=== PATIENT | male | born 1990 | race African-American/Black ===

== ENCOUNTER 2021-02-09 22:05 | Emergency (ER) | payer OTHER ==
[2021-02-09 22:22] VITALS: BP 136/95; PULSE 87; TEMP 99; BMI 30.2
[2021-02-09] MEDS ORDERED: AMOX TR/POT CLAV 500MG/125MG TABLETS (FP) PO ONE (22:38)
[2021-02-09] MEDS ORDERED: DIPHTH,PERTUSS(ACELL),TET 0.5 ML DISP.SYRIN IM ONE ×2 (22:39→22:41)
[2021-02-09] MEDS ORDERED: AMOX TR/POT CLAV 500MG/125MG TABLETS (FP) ONE (22:40)
== END 2021-02-09 23:04 | disposition home or self-care (01) ==
LOC: FER 22:05
PROC: 3E0234Z Introduction of Serum, Toxoid and Vaccine into Muscle, Percutaneous Approach (ICD-10-PCS; principal; 2021-02-09)
DX: S01.511A Laceration without foreign body of lip, initial encounter (principal); Y04.0XXA Assault by unarmed brawl or fight, initial encounter; Y92.9 Unspecified place or not applicable
CPT/HCPCS: 90715; 99283-25